=== PATIENT | female | born 1980 | race Caucasian/White ===

== ENCOUNTER 2021-12-26 14:12 | Emergency (ER) | payer OTHER ==
--- OUTSIDE RECORDS SUMMARY | 2021-12-26 14:16 | EXTERNAL MEDICAL SUMMARY RPT | Continuity of Care Document ---
:1980 Author Organization [facility] Address [address] [place] [address] Phone Allergies No information. Encounters No information. Functional Status No information. Immunizations No information. Medications date description facility [id number] multivitamin [facility] [place] Problems No information. Procedures No information. Results/Labs No information. Social History date description facility [id number] Never smoker [facility] [place] Vital Signs date measurement value units [id number] BMI BMI 23.70 kg/m2 [id number]+0000 BP_diastolic BP_diastolic 69 mm[H g] [id number]+0000 BP_systolic BP_systolic 102 mm[Hg] 53564446286402+0000 heart_rate heart_rate 72 /min [id number]+0000 height_metric height_metric 158.75 cm [id number]+0000 height_standard height_standard 62.5 in [id number]+0000 respiration_rate respiration_rate 16 /min 78431722819085+0000 temperature_metric temperature_metric 36.89 C [id number]+0000 temperature_standard temperature_standard 9 8.4 F [id number]+0000 weight_metric weight_metric 59.51 kg [id number]+0000 weight_standard weight_standard 131.2 lb
[2021-12-26 14:19] VITALS: BP 124/72
[2021-12-26 14:34] LABS: BILIRUBIN,URINE NEGATIVE (NEGATIVE); GLUCOSE, URINE (UA) NEGATIVE (NEGATIVE); KETONES,URINE (UA) NEGATIVE (NEGATIVE); LEUKOCYTE ESTERASE, URINE TRACE (NEGATIVE); NITRITE,URINE NEGATIVE (NEGATIVE); OCCULT BLOOD,URINE NEGATIVE (NEGATIVE); PROTEIN,URINE NEGATIVE (NEGATIVE); UROBILINOGEN,URINE 0.2 (NORMAL) E.U./dL (NORMAL)
[2021-12-26 14:36] LABS: CLARITY,URINE CLEAR (CLEAR)
[2021-12-26 14:37] LABS: HCG UR QUAL NEGATIVE
--- NOTE | 2021-12-26 14:37 | ED Physician Documentation ---
PD HPI FEMALE - Stated complaint Stated Complaint: FEMALE - Chief complaint Chief Complaint: UTI - History obtained from History obtained from: Patient (2 days of urinary frequency and dysuria without flank pain or fevers. Last UTI was about 4 to 5 years ago.) Review of Systems Constitutional: denies: Fever, Chills GI: denies: Abdominal Pain : reports: Dysuria, Frequency PD PAST MEDICAL HISTORY - Present Medications Home Medications: Ambulatory Orders Medication Instructions Recorded Confirmed Nitrofurantoin [Macrobid] 1 cap PO BID #10 cap 12/26/21 Phenazopyridine HCl [Pyridium] 200 mg PO TID PRN #6 tablet 12/26/21 - Allergies Allergies/Adverse Reactions: Allergies Allergy/AdvReac Type Severity Reaction Status Date / Time aspirin Allergy Anaphylaxis Verified 12/26/21 14:17 PD ED PE NORMAL - Vitals Vital signs reviewed: Yes - General General: Alert and oriented X 3, No acute distress - Abdomen Abdomen: Non tender - Back Back: No CVA TTP - Derm Derm: No rash - Neuro Neuro: Alert and oriented X 3, Normal speech Results - Vitals Vitals: Vital Signs - 24 hr 12/26/21 14:17 Temperature 36.9 C Heart Rate 80 Respiratory 17 Rate Blood Pressure 124/72 O2 Saturation 100 Oxygen O2 Source Room air - Labs Labs: Laboratory Tests 12/26/21 14:17 Urine Color STRAW Urine Clarity CLEAR Urine pH 6.0 Ur Specific [place] <=1.005 Urine Protein NEGATIVE Urine Glucose (UA) NEGATIVE Urine Ketones NEGATIVE Urine Occult Blood NEGATIVE Urine Nitrite NEGATIVE Urine Bilirubin NEGATIVE Urine Urobilinogen 0.2 (NORMAL) Ur Leukocyte Esterase TRACE H Urine RBC None Seen Urine WBC 11-25 H Ur Squamous Epith Cells NONE SEEN Urine Bacteria Rare Ur Microscopic Review INDICATED Urine Culture Comments INDICATED Urine HCG, Qual NEGATIVE Departure - Departure Disposition: Home, Self Care Clinical Impression: Cystitis Condition: Good Record reviewed to determine appropriate education?: Yes Instructions: ED UTI Cystitis Female Prescriptions: Nitrofurantoin [Macrobid] 1 cap PO BID #10 cap Phenazopyridine HCl [Pyridium] 200 mg PO TID PRN #6 tablet PRN Reason: dysuria Comments: I sent your prescriptions electronically to [facility] in [place]. We will culture your urine, the results should be done in 48-72 hours. If an antibiotic change is necessary we will call you. Return if worse in the meantime, especially if you develop increasing flank pain, fevers, or cannot keep down the medication.
[2021-12-26] MEDS ORDERED: PHENAZOPYRIDINE 100 MG TABLET PO STA (14:39)
[2021-12-26] MEDS ORDERED: NITROFURANTOIN MACRO 100 MG CAPSULE PO STA (14:39)
[2021-12-26 14:47] LABS: BACTERIA,URINE Rare /HPF (None Seen); RBC,URINE None Seen /HPF (0-5); SQUAMOUS EPITHELIAL CELL,UR NONE SEEN (<= Few)
== END 2021-12-26 14:59 | disposition home or self-care (01) ==
LOC: ED 14:12
DX: N30.90 Cystitis, unspecified without hematuria (principal)
CPT/HCPCS: 81001; 81025; 87086; 99282; 99283; A9270; 81003